=== PATIENT | male | born 1980 | race Caucasian/White ===

== ENCOUNTER 2019-06-06 18:07 | Emergency (ER) | payer OTHER ==
--- NOTE | 2019-06-06 18:16 | ED Physician Documentation ---
General Adult - HISTORIAN Historian: patient - HPI Stated Complaint: opioid withdrawal Chief Complaint: General Adult Onset: hours Timing: still present Severity: moderate Further Comments: yes (Pt is a 39 yo male resident of [facility] who is there for opioid abuse. Pt was a heroine and fentanyl abuser who stopped 5 days ago, he says. Pt had been doing sufficiently well, but not great, he says, until today when he was started on suboxone. Pt became diaphoretic, anxious, and tachycardic. Pt attributes this effect to the suboxone.) - ROS CONST: other (anxious) EYES/ENT: none CVS/RESP: other (tachycardia) GI/: none MS/SKIN/LYMPH: none NEURO/PSYCH: anxiety - PAST HX Past History: other (drug abuse) Allergies/Adverse Reactions: Allergies Allergy/AdvReac Type Severity Reaction Status Date / Time No Known Allergies Allergy Verified 06/06/19 18:16 Home Medications: Ambulatory Orders Medication Instructions Recorded Buprenorphine HCl/Naloxone HCl 8 mg PO AM 06/06/19 [Suboxone 8 mg-2 mg Tablet] Buspirone HCl [Buspar] 15 mg PO TID 06/06/19 Sertraline HCl 100 mg PO DAILY 06/06/19 - SOCIAL HX Smoking History: non-smoker Alcohol Use: none Drug Use: heroin, other (fentanyl) - FAMILY HX Family History: No - REVIEWED ASSESSMENTS Nursing Assessment Reviewed: Yes Vitals Reviewed: Yes Progress - Progress Progress: Ativan 1 mg po Ativan 2 mg IM improved nausea Zofran 4 mg ODT d/w Dr. Ordonez. D/c to [facility]. Dr. Ordonez will see pt in am at [facility]. General Adult Physical Exam - PHYSICAL EXAM GENERAL APPEARANCE: moderate distress (anxious) EENT: eye inspection normal, pharynx normal NECK: normal inspection, supple RESPIRATORY: no resp distress, chest non-tender, breath sounds normal CVS: tachycardia ABDOMEN: soft, no organomegaly, normal bowel sounds BACK: normal inspection SKIN: normal color, diaphoresis (mild) EXTREMITIES: non-tender, normal range of motion, no evidence of injury NEURO: oriented X3, motor nml, sensation nml, other (anxious) Discharge Clincal Impression: agitation, probable opioid withdrawal , precipitated withdrawal with suboxone Referrals: Primary Doctor,No [Primary Care Provider] - Condition: Stable Disposition: 01 HOME, SELF-CARE Decision to Admit: NO Decision Time: 20:59
[2019-06-06 18:17] VITALS: BP 158/134
[2019-06-06] MEDS: LORazepam 2 MG/ML VIAL IV ONE (18:54)
[2019-06-06] MEDS: LORazepam 1 MG TABLET PO ONE (18:54)
[2019-06-06] MEDS: LORazepam 2 MG/ML VIAL IM ONE (19:48)
[2019-06-06] MEDS: ONDANSETRON HCL 4 MG TAB.RAPDIS PO ONE (21:10)
[2019-06-08 06:55] LABS: CANNABINOIDS NEGATIVE ng/mL (< 50); METHYLENEDIOXYMETHAMPHETAMINE NEGATIVE ng/mL (<500)
== END 2019-06-06 21:18 | disposition home or self-care (01) ==
LOC: ED 18:07
DX: F11.23 Opioid dependence with withdrawal (principal); R45.1 Restlessness and agitation